=== PATIENT | male | born 1955 | race American Indian/Alaskan Native ===

== ENCOUNTER 2017-08-27 10:45 | Observation (INO) | payer MEDICARE ==
[2017-08-22 09:45] LABS: Hematocrit 34.2 % (35.5-45.6); Hemoglobin 11.9 gm/dl (11.8-15.2); Mean Corpuscular HGB Conc 35 % (32-34); Mean Corpuscular Hemoglobin 28 pg (28-32); Mean Corpuscular Volume 82 fl (84-94); Platelet Count 494 K/mm3 (140-440); Red Blood Count 4.19 M/mm3 (3.65-5.03); Red Cell Distribution Width 15.8 % (13.2-15.2)
[2017-08-22 09:54] LABS: Partial Thromboplastin Time 38.8 Sec. (24.2-36.6)
--- NOTE | 2017-08-22 09:54 | Anesthesia Consultation ---
Anesthesia Consult and Med Hx Date of service: 08/22/17 - Airway Anesthetic Teeth Evaluation: Poor (multiple missing) ROM Head & Neck: Adequate Mental/Hyoid Distance: Adequate Mallampati Class: Class III Intubation Access Assessment: Probably Good - Pulmonary Exam CTA: Yes - Cardiac Exam Cardiac Exam: RRR - Pre-Operative Health Status ASA Pre-Surgery Classification: ASA3 Proposed Anesthetic Plan: General - Pulmonary Hx Smoking: Yes (STOPPED X 4 MONTHS , 1/2 PPD X 40 YRS) Hx Sleep Apnea: No (SIDNEY PRE SCREEN HIGH RISK) - Cardiovascular System Hx Hypertension: Yes (X 20 YRS) - Central Nervous System Hx Back Pain: Yes (WITH LEFT LEG PAIN AND NUMBNESS) - Endocrine Hx Renal Disease: Yes (2/2 to urinary obstruction. He now has a catheter) - Hematic Hx Sickle Cell Disease: No (SC TRAIT ONLY) - Other Systems Hx Cancer: No
[2017-08-22 09:57] LABS: Albumin 3.8 g/dL (3.9-5); BUN/Creatinine Ratio 13; Blood Urea Nitrogen 18 mg/dL (9-20); Calcium 9.4 mg/dL (8.4-10.2); Hemolysis Index 5
[2017-08-22 10:07] LABS: Alanine Aminotransferase < 5 units/L (7-56)
[2017-08-22 10:30] LABS: Basophils % (Manual) 0 % (0.0-1.8); Total Cells Counted 100
[~2017-08-27 10:45] MED LIST: ANCEF/STERILE WATER 2 GM/20 ML IV NR
[2017-08-27] MEDS ORDERED: DILAUDID IV PRN (12:14)
[2017-08-27] MEDS ORDERED: NACL 0.9% 1000 ML 1,000 ML ONE (12:47)
[2017-08-27] MEDS ORDERED: PEPCID IV ONE (12:49)
[2017-08-27] MEDS ORDERED: VERSED IV NR (13:01)
[2017-08-27] MEDS: NACL 0.9% 1000 ML 1,000 ML IV SCH ×2 (13:14→19:12)
[2017-08-27] MEDS ORDERED: DIPRIVAN 10 MG/ML IV ONE ×2 (13:21→13:31)
[2017-08-27] MEDS ORDERED: SUBLIMAZE ONE (13:30)
[2017-08-27] MEDS ORDERED: NACL 0.9% IR ONE ×3 (13:38)
[2017-08-27] MEDS ORDERED: XYLOCAINE MPF 2% ONE (13:54)
[2017-08-27] MEDS ORDERED: ANCEF/STERILE WATER 2 GM/20 ML IV NR (14:00)
[2017-08-27] MEDS ORDERED: PEPCID IV NR (14:00)
[2017-08-27] MEDS ORDERED: DILAUDID ONE (14:03)
[2017-08-27] MEDS ORDERED: ZOFRAN ONE (14:32)
--- NOTE | 2017-08-27 14:37 | Short Stay Summary ---
Short Stay Documentation Date of service: 08/27/17 - History H&P: obtained from office - Allergies and Medications Current Medications: Allergies No Known Allergies Allergy (Verified 08/19/17 13:13) Home Medications Medication Instructions Recorded Confirmed Last Taken Type Aspirin [Lo-Dose Aspirin EC] 81 mg PO DAILY 08/19/17 08/27/17 08/20/17 History Cholecalciferol (Vitamin D3) 1,000 unit PO DAILY 08/19/17 08/27/17 08/25/17 History [Vitamin D3] Clonidine HCl [Catapres] 0.3 mg PO TID 08/19/17 08/27/17 08/27/17 06:30 History Doxazosin [Cardura] 4 mg PO QDAY 08/19/17 08/27/17 08/27/17 06:30 History Hydrochlorothiazide [HCTZ] 25 mg PO QDAY 08/19/17 08/27/17 08/27/17 07:30 History Meclizine [Antivert] 25 mg PO TID PRN 08/19/17 08/27/17 Unknown History Tamsulosin [Flomax] 0.4 mg PO BID 08/19/17 08/27/17 08/27/17 06:30 History amLODIPine [Norvasc] 10 mg PO DAILY 08/19/17 08/27/17 08/27/17 06:30 History Active Medications Cefazolin Sodium (Ancef/Sterile Water 2 Gm/20 Ml) 2 gm IV PREOP NR Stop: 08/27/17 23:59 Famotidine (Pepcid) 20 mg IV PREOP NR Stop: 08/27/17 23:59 Last Admin: 08/27/17 13:14 Dose: 20 mg Hydromorphone HCl (Dilaudid) 0.5 mg IV Q10MIN PRN PRN Reason: Pain , Severe (7-10) Stop: 08/27/17 23:59 Sodium Chloride (Nacl 0.9% 1000 Ml) 1,000 mls @ 100 mls/hr IV DIRECT PAOLA Last Admin: 08/27/17 13:14 Dose: 100 mls/hr Midazolam HCl (Versed) 2 mg IV ONCE NR Stop: 08/27/17 23:59 Last Admin: 08/27/17 13:15 Dose: 2 mg - Brief post op/procedure progress note Date of procedure: 08/27/17 Pre-op diagnosis: retention Post-op diagnosis: same Procedure: Cysto, TURP Anesthesia: GETA Surgeon: EMMIE SMITH Estimated blood loss: 50-100ml Pathology: list (PROSTATE CHIPS) Specimen disposition: to lab Condition: stable - Hospital course Hospital course: CIPRO & NORCO ON CHART pt without complaints labs look good horton draining pink tinged urine - Disposition Condition at discharge: Stable Short Stay Discharge Plan Follow up with: PRIMARY CARE, [Primary Care Provider] - 7 Days
[2017-08-27] MEDS ORDERED: ZOFRAN IV PRN (14:46)
[2017-08-27] MEDS ORDERED: AMBIEN PO PRN (14:46)
[2017-08-27] MEDS ORDERED: MORPHINE IV PRN (14:46)
[2017-08-27] MEDS ORDERED: NARCAN 0.4 MG/1 ML IV PRN (14:46)
[2017-08-27] MEDS ORDERED: ANTIVERT PO PRN (14:51)
[2017-08-27] MEDS ORDERED: LACTATED RINGERS 1,000 ML IV SCH (15:00)
[2017-08-27] MEDS ORDERED: ANCEF/NS 1 GM/50 ML 1 GM/50 ML BAG IV SCH (15:00)
--- NOTE | 2017-08-27 15:43 | Fluoroscopy Report ---
FLUOROSCOPY RETROGRADE UROGRAPHY: HISTORY: Urinary retention. FINDINGS: Fluoroscopy was provided by radiology during retrograde urography by the urologist. 5 fluoroscopic images were captured. There is adequate filling of the left ureter and intrarenal collecting system with no filling defects or anatomic abnormalities identified. The right pyelogram was not performed. Please correlate with the procedural report if needed. IMPRESSION: Left retrograde pyelogram within normal limits.
--- NOTE | 2017-08-27 15:57 | Operative Report ---
PREOPERATIVE DIAGNOSES: Benign prostatic hypertrophy, urinary retention. POSTOPERATIVE DIAGNOSES: Benign prostatic hypertrophy, urinary retention. PROCEDURE: Cystoscopy, left retrograde pyelogram, transurethral resection of the prostate. SURGEON: Everett Martinez MD ANESTHESIA: General. ESTIMATED BLOOD LOSS: Minimal. FLUIDS: Crystalloid. COMPLICATIONS: No complications. INDICATIONS: This patient is a 61-year-old gentleman has been followed by pr for urinary retention and seen by Dr. Ca in our group at [facility]. He also was admitted for urinary retention at [facility]. He has been on maximum medication, peak flow of 2 mL a second. The patient tried going home; however, developed urinary retention. He presents now for TURP. DESCRIPTION OF PROCEDURE: The patient was taken to the operative suite, placed in a supine position. After adequate general anesthesia, placed in a dorsal lithotomy position, prepped and draped in a sterile fashion. Pancystourethroscopy was performed with a 22-[place] Storz cystoscope, no urethral abnormalities. His prostate displayed significant trilobar prostatic obstruction with a median lobe with a moderate size median lobe bladder, no tumors or stones were noted. Did have some diffuse trabeculation. Left retrograde pyelogram was obtained with an 8-[place] Crescent catheter and 8 mL of contrast with significant J hooking. Could not appreciate the right ureteral orifice due to trabeculation. Using a moderate bipolar loop with cutting and coag on transurethral resection of the prostate was performed in a systematic fashion, taking down the median lobe and the right and left lateral lobes respectively. Button cautery was used for hemostasis. Chips were evacuated out with the IvyDate evacuator. Upon completion, the veru and external sphincter was intact. 24-[place] 3-way catheter to Good's drip was left indwelling. 50 mL in the balloon irrigated well. No clots. Rectal exam was benign. The patient tolerated the procedure well, was extubated, taken to recovery room, be observed overnight, go home on Cipro and Ceres and follow up in the office. JOB# [id number] YOCASTA/NTS
[2017-08-27] MEDS ORDERED: NON-FORMULARY (Clonidine Hcl [Catapres] 0.3 MG) PO SCH (20:00)
[2017-08-27] MEDS: CATAPRES PO SCH (21:57)
[2017-08-27] MEDS: NORCO 5/325 PO PRN (21:58)
[2017-08-27] MEDS: ceFAZolin 1 GM in NACL 0.9% 20 ML IV SCH (22:02)
[2017-08-27] MEDS: NACL 0.9% IR SCH (22:04)
[2017-08-28] MEDS: NACL 0.9% 1000 ML 1,000 ML IV SCH (04:47)
[2017-08-28] MEDS: NACL 0.9% IR SCH ×2 (04:49→05:02)
[2017-08-28] MEDS: NORCO 5/325 PO PRN ×3 (04:55→17:59)
[2017-08-28] MEDS: ceFAZolin 1 GM in NACL 0.9% 20 ML IV SCH (05:04)
[2017-08-28] MEDS: CATAPRES PO SCH ×2 (05:28→14:20)
--- NOTE | 2017-08-28 06:43 | Consultation ---
History of Present Illness - Reason for Consult Consult date: 08/28/17 Medical management Requesting physician: EMMIE SMITH - History of Present Illness S/p Cystoscopy and Turp Post op doing well Past History Past Medical History: hypertension, other (BPH Vit D deficiency) Past Surgical History: TURP Social history: no significant social history, lives with family, full code Family history: hypertension Medications and Allergies Allergies Allergy/AdvReac Type Severity Reaction Status Date / Time No Known Allergies Allergy Verified 08/19/17 13:13 Home Medications Medication Instructions Recorded Confirmed Last Taken Type Aspirin [Lo-Dose Aspirin EC] 81 mg PO DAILY 08/19/17 08/27/17 08/20/17 History Cholecalciferol (Vitamin D3) 1,000 unit PO DAILY 08/19/17 08/27/17 08/25/17 History [Vitamin D3] Clonidine HCl [Catapres] 0.3 mg PO TID 08/19/17 08/27/17 08/27/17 06:30 History Doxazosin [Cardura] 4 mg PO QDAY 08/19/17 08/27/17 08/27/17 06:30 History Hydrochlorothiazide [HCTZ] 25 mg PO QDAY 08/19/17 08/27/17 08/27/17 07:30 History Meclizine [Antivert] 25 mg PO TID PRN 08/19/17 08/27/17 Unknown History Tamsulosin [Flomax] 0.4 mg PO BID 08/19/17 08/27/17 08/27/17 06:30 History amLODIPine [Norvasc] 10 mg PO DAILY 08/19/17 08/27/17 08/27/17 06:30 History Active Meds: Active Medications Acetaminophen/Hydrocodone Bitart (Tabiona 5/325) 2 each PO Q4H PRN PRN Reason: Pain, Moderate (4-6) Last Admin: 08/28/17 04:55 Dose: 2 each Amlodipine Besylate (Norvasc) 10 mg PO DAILY PAOLA Clonidine HCl (Catapres) 0.3 mg PO Q8HR PAOLA Last Admin: 08/28/17 05:28 Dose: Not Given Doxazosin Mesylate (Cardura) 4 mg PO QDAY PAOLA Hydrochlorothiazide (Hctz) 25 mg PO QDAY PAOLA Sodium Chloride (Nacl 0.9% 1000 Ml) 1,000 mls @ 100 mls/hr IV DIRECT PAOLA Last Admin: 08/28/17 04:47 Dose: 100 mls/hr Lactated Ringer's (Lactated Ringers) 1,000 mls @ 100 mls/hr IV DIRECT PAOLA Meclizine HCl (Antivert) 25 mg PO TID PRN PRN Reason: Vertigo Morphine Sulfate (Morphine) 2 mg IV Q4H PRN PRN Reason: Pain, Moderate (4-6) Naloxone HCl (Narcan 0.4 Mg/1 Ml) 0.1 mg IV Q2MIN PRN PRN Reason: Res Rate </= 8 or 02 SAT < 92% Ondansetron HCl (Zofran) 4 mg IV Q8H PRN PRN Reason: Nausea And Vomiting Sodium Chloride (Nacl 0.9%) 2,000 ml IR DIRECT PAOLA Last Admin: 08/28/17 05:02 Dose: 2,000 ml Zolpidem Tartrate (Ambien) 5 mg PO QHS PRN PRN Reason: Sleep Review of Systems All systems: negative Constitutional: no weight loss, no weight gain, no fever, no chills, no sweats, no night sweats Ears, nose, mouth and throat: no hoarseness, no sore throat Cardiovascular: no chest pain, no orthopnea, no palpitations, no rapid/ irregular heart beat, no edema, no syncope, no lightheadedness, no shortness of breath Respiratory: no cough, no cough with sputum, no excessive sputum, no hemoptysis , no shortness of breath, no dyspnea on exertion Gastrointestinal: no abdominal pain, no nausea, no vomiting, no diarrhea, no constipation, no change in bowel habits, no hematemesis, no coffee ground emesis Genitourinary Male: dysuria, hematuria Rectal: no pain Musculoskeletal: no neck stiffness, no neck pain, no shooting arm pain, no arm numbness/tingling, no low back pain, no shooting leg pain, no leg numbness/ tingling, no redness of joints Integumentary: no rash, no pruritis, no redness, no sores, no wounds, no jaundice Neurological: no seizures, no syncope Psychiatric: no anxiety, no memory loss, no change in sleep habits Endocrine: no cold intolerance, no heat intolerance Hematologic/Lymphatic: no easy bruising, no easy bleeding Allergic/Immunologic: no urticaria, no allergic rhinitis, no wheezing Exam - Constitutional Vitals: Temp Pulse Resp BP Pulse Ox 98.1 F 91 H 20 118/60 98 08/28/17 04:33 08/28/17 05:28 08/28/17 04:33 08/28/17 05:28 08/28/17 04:33 General appearance: Present: no acute distress, well-nourished - EENT Eyes: Present: PERRL ENT: hearing intact, clear oral mucosa - Neck Neck: Present: supple, normal ROM - Respiratory Respiratory effort: normal Respiratory: bilateral: CTA - Cardiovascular Heart rate: 80 Rhythm: regular Heart Sounds: Present: S1 & S2. Absent: rub, click - Extremities Extremities: no ischemia, pulses intact, pulses symmetrical, No edema Peripheral Pulses: within normal limits - Abdominal General gastrointestinal: Present: soft, non-tender, non-distended, normal bowel sounds Male genitourinary: Present: normal - Rectal Rectal Exam: deferred - Integumentary Integumentary: Present: clear, warm, dry - Musculoskeletal Musculoskeletal: gait normal, strength equal bilaterally - Psychiatric Psychiatric: appropriate mood/affect, intact judgment & insight - Neurologic Neurologic: CNII-XII intact, moves all extremities - Allied Health Allied health notes reviewed: nursing, case management Results - Labs CBC & Chem 7: 08/22/17 09:15 08/27/17 12:30 Labs: Abnormal lab results 08/27/17 Range/Units 12:30 Potassium 3.3 L (3.6-5.0) mmol/L Assessment and Plan - Patient Problems (1) HTN (hypertension) Current Visit: Yes Status: Chronic Qualifiers: Hypertension type: essential hypertension Qualified Code(s): I10 - Essential (primary) hypertension Plan to address problem: Cont antihypertensives (2) BPH (benign prostatic hyperplasia) Current Visit: Yes Status: Chronic Qualifiers: Lower urinary tract symptom presence: symptoms present Plan to address problem: Had TURP No need for Flomax and cardura (3) S/P TURP Current Visit: Yes Status: Acute Plan to address problem: postop doing well (4) DVT prophylaxis Current Visit: Yes Status: Acute Plan to address problem: on SCD's
[2017-08-28] MEDS ORDERED: K-DUR PO ONE (06:53)
[2017-08-28] MEDS: CARDURA PO SCH ×2 (08:22→10:00)
[2017-08-28] MEDS ORDERED: NORVASC PO SCH (10:00)
[2017-08-28] MEDS ORDERED: HCTZ PO SCH (10:00)
[2017-08-28 14:31] LABS: Basophils % (Auto) 0.6 % (0.0-1.8); Eosinophils # (Auto) 0.2 K/mm3 (0.0-0.4); Eosinophils % (Auto) 2.7 % (0.0-4.3); Hematocrit 30.3 % (35.5-45.6); Hemoglobin 10.2 gm/dl (11.8-15.2); Lymphocytes # (Auto) 1.3 K/mm3 (1.2-5.4); Lymphocytes % (Auto) 19.3 % (13.4-35.0); Mean Corpuscular HGB Conc 34 % (32-34); Mean Corpuscular Hemoglobin 28 pg (28-32); Mean Corpuscular Volume 85 fl (84-94); Monocytes # (Auto) 0.5 K/mm3 (0.0-0.8); Monocytes % (Auto) 7.6 % (0.0-7.3); Platelet Count 344 K/mm3 (140-440); Red Blood Count 3.57 M/mm3 (3.65-5.03)
[2017-08-28 14:59] LABS: BUN/Creatinine Ratio 11; Blood Urea Nitrogen 16 mg/dL (9-20); Calcium 8.4 mg/dL (8.4-10.2); Hemolysis Index 3
[2017-08-28 16:23] VITALS: BP 129/75
== END 2017-08-28 19:13 | disposition home or self-care (01) ==
LOC: OR 10:45 → 3B-SURG 14:46
PROVIDERS: ADMIT Urology; ATTEND Urology
DX: N40.1 Benign prostatic hyperplasia with lower urinary tract symptoms (principal); R33.8 Other retention of urine; I10 Essential (primary) hypertension; Z87.891 Personal history of nicotine dependence
CPT/HCPCS: 36415; 52601; 74420; 80048; 80053; 84132; 85007; 85025; 85610; 85730; 86850; 86900; 86901; 88305; 96374; 96375; 96376; A4217; G0378; J0690; J1170; J2250; J2405; J2704; J3010; J7030; Q9967